=== PATIENT | male | born 1960 | race Caucasian/White ===

== ENCOUNTER 2017-01-07 15:36 | Emergency (ER) | payer OTHER | END 2017-01-07 19:15 | disposition home or self-care (01) | LOC: ER 15:36 | DX: H60.92 Unspecified otitis externa, left ear (principal) ==

== ENCOUNTER 2017-02-26 11:58 | Emergency (ER) | payer OTHER | END 2017-02-26 14:45 | disposition home or self-care (01) | LOC: ER 11:58 | DX: S60.221A Contusion of right hand, initial encounter (principal); W20.8XXA Other cause of strike by thrown, projected or falling object, initial encounter; F17.210 Nicotine dependence, cigarettes, uncomplicated | CPT/HCPCS: 73130; 99283 ==

== ENCOUNTER 2017-03-05 11:00 | Emergency (ER) | payer OTHER | END 2017-03-05 12:16 | disposition home or self-care (01) | LOC: ER 11:00 | DX: M75.51 Bursitis of right shoulder (principal); Z79.82 Long term (current) use of aspirin; Z79.899 Other long term (current) drug therapy | CPT/HCPCS: 73030; 99283-25 ==